=== PATIENT | female | born 2000 | race Caucasian/White ===

== ENCOUNTER 2019-08-12 07:39 | Inpatient (IN) | payer OTHER ==
[2019-08-12] MEDS ORDERED: Ringers Lactate 1,000 ML IV ONE (16:23)
[2019-08-12] MEDS ORDERED: miSOPROStol 100 MCG TAB VAG PRN (16:39)
[2019-08-12] MEDS ORDERED: BUTORPHANOL 1 MG/ML INJ IV PRN (16:39)
[2019-08-12] MEDS ORDERED: METHYLERGONOVINE 0.2MG/ML AMP IM PRN (16:39)
[2019-08-12] MEDS ORDERED: PROMETHAZINE 25 MG/ML VIAL IM PRN (16:39)
[2019-08-12] MEDS ORDERED: DIPHENHYDRAMINE 25 MG TAB/CAP PO PRN (16:39)
[2019-08-12] MEDS ORDERED: CARBOPROST TROME 250 MCG/ML IM PRN (16:39)
[2019-08-12] MEDS ORDERED: MIDAZOLAM HCL 2 MG/2 ML INJ IV PRN (16:39)
[2019-08-12] MEDS ORDERED: Ringers Lactate 1,000 ML IV PRN (16:39)
[2019-08-12] MEDS ORDERED: MEPERIDINE HCL 25 MG/0.5 ML IV PRN (16:39)
[2019-08-12] MEDS ORDERED: ZOLPIDEM TARTRATE 5 MG TABLET PO PRN (16:39)
[2019-08-12] MEDS ORDERED: MAGNES/ALUMIN/SIMET 30ML UCUP PO PRN (16:39)
[2019-08-12] MEDS ORDERED: Ringers Lactate 1,000 ML IV SCH (17:00)
[2019-08-12] MEDS ORDERED: OXYTOCIN/LR 20 UNIT/1,000 ML BAG IV SCH (17:00)
[2019-08-12 17:12] LABS: Absolute Lymphocytes (CBC) 1.7 K/uL (0.7-4.9); Basophils % 0.4 % (0-1.3); Hematocrit 29.7 % (36.0-45.0); Lymphocytes % 26.7 % (15.3-44.8); MPV 9.9 fL (7.6-11.3); RBC Red Blood Cell Count 4.19 M/uL (3.86-4.86)
[2019-08-12 17:15] LABS: Urine Appearance CLEAR; Urine Blood NEGATIVE (NEG); Urine Color DK YELLOW; Urine Glucose NEGATIVE (NEG); Urine Protein 1+ (NEG); Urine Specific Gravity >=1.030 (1.005-1.030)
[2019-08-12 17:24] LABS: Urine Bilirubin NEGATIVE (NEG); Urine Microscopic Reflex ORDER UMIC
[2019-08-12 17:35] LABS: Urine Appearance CLEAR; Urine Bilirubin NEGATIVE (NEG); Urine Blood NEGATIVE (NEG); Urine Color YELLOW; Urine Glucose NEGATIVE (NEG); Urine Protein 1+ (NEG); Urine Specific Gravity 1.025 (1.005-1.030); Urine pH 6.5 (5.0-7.0)
[2019-08-12 17:49] LABS: Urine Bacteria >50 /HPF (<20); Urine Mucus SLIGHT /HPF (NONE SEEN)
[2019-08-12 17:50] LABS: Urine Culture Reflex Order NOT NEEDED
[2019-08-12 17:53] LABS: Urine Bacteria <20 /HPF (<20); Urine Culture Reflex Order REFLEXED; Urine Mucus SLIGHT /HPF (NONE SEEN); Urine RBC <5 /HPF (NONE SEEN)
[2019-08-12] MEDS ORDERED: MAGNESIUM SULF/STERILE WATER 1,000 ML IV SCH (18:00)
[2019-08-12 18:25] VITALS: BMI 36.7
[2019-08-12] MEDS ORDERED: Oxycodone HCl/Acetaminophen 1 TAB TAB PO PRN (20:20)
[2019-08-12] MEDS ORDERED: Oxycodone HCl/Acetaminophen 1 TAB TAB ONE (20:39)
[2019-08-12 21:55] LABS: RPR (Rapid Plasma Reagin) NON-REACT (NON-REACT)
--- NOTE | 2019-08-12 22:41 | PREOPHP ---
Date of Admission: 08/12/2019 18-year-old primigravida, 40 weeks gestation. For Cytotec induction, full discussion in the office a nd again this afternoon concerning Cytotec. Baby did not look reactive. We did acoustic stimulation and the pulse went from about 130 to 170. Now, expected the 140 to 150 range looks better. Her blo od pressures were elevated to 145-150 systolic, 85 diastolic. She has +1 edema and her reflexes are brisk. We will get a catheterized specimen to show protein. We will start her on magnesium sulfate 4 g with loading dose of 2 g an hour maintenance dose. Full discussion with patient and family. Cer vix is 1.5 cm, posterior, 50% soft. Baby is applied at -1 to almost -2 station. Cytotec 50 mcg inse rted. We will insert another one in 6 hours and then 6 hours a third one if needed. Full labor talk and induction talk given. KRUPA/BRIAN Voice ID: [id number]
[2019-08-13] MEDS ORDERED: ROPIVACAINE HCL 100 ML IV PRN (02:34)
[2019-08-13] MEDS ORDERED: FENTANYL CITR 100 MCG/2 ML IV ONE (02:36)
[2019-08-13] MEDS ORDERED: ROPIVACAINE HCL 20 ML ONE (02:58)
[2019-08-13] MEDS ORDERED: LIDOCAINE 1% MPF 30 ML VIAL ONE (07:09)
[2019-08-13] MEDS ORDERED: METHYLERGONOVINE 0.2MG/ML AMP IM ONE (07:09)
[2019-08-13] MEDS ORDERED: CARBOPROST TROME 250 MCG/ML IM ONE ×2 (07:09→07:11)
[2019-08-13] MEDS ORDERED: CARBOPROST TROME 250 MCG/ML IM PRN (08:35)
[2019-08-13] MEDS ORDERED: IBUPROFEN 200 MG TAB PO PRN (08:35)
[2019-08-13] MEDS ORDERED: Oxycodone HCl/Acetaminophen 1 TAB TAB PO PRN ×2 (08:35)
[2019-08-13] MEDS ORDERED: BISACODYL 10 MG RECTAL SUPP RECT PRN (08:35)
[2019-08-13] MEDS ORDERED: DIPHENHYDRAMINE 25 MG TAB/CAP PO PRN (08:35)
[2019-08-13] MEDS ORDERED: ACETAMINOPHEN 500 MG TAB PO PRN (08:35)
[2019-08-13] MEDS ORDERED: DOCUSATE NA/SENNA CONC 1 TAB PO PRN (08:35)
[2019-08-13] MEDS ORDERED: OXYTOCIN/LR 20 UNIT/1,000 ML BAG IV SCH (09:00)
[2019-08-13] MEDS: PHENOBARBITAL 32.4 MG TABLET PO SCH ×2 (13:10→18:50)
--- NOTE | 2019-08-13 14:15 | PN ---
Subjective: This 18-year-old primigravida, now at 40 weeks and 1 day, had Cytotec inserted 2 to 3 ti mes, experienced partial rupture of membranes, clear fluid. Complete rupture this morning. The slim ent had epidural anesthesia established. Her blood pressures moderated during the night. Magnesium s ulfate level was less than 6 but greater than 5 into therapeutic range. We have shut off the magnesi um sulfate. Taken out Bartlett and patient now with pushing. Baby looks good on the monitor. Hopefull y, delivery will be affected within the next 30 minutes or so. KRUPA/BRIAN Voice ID: [id number] Report ID: [id number]
--- NOTE | 2019-08-13 19:33 | OP ---
Surgeon: Gee Carlisle MD Description Of Procedure: A 18-year-old primigravida, 40 weeks gestation, had Cytotec inserted x3, w ent into an active labor pattern. Experienced partial rupture of membranes and clear fluid. Complet e rupture of membranes at approximately 9 to 9.5 cm. She received epidural anesthesia. Patient was started on magnesium sulfate. Mild preeclampsia. Last magnesium sulfate level greater than 5 less t le 6. The second stage of approximately 45 minutes, approximately an hour. Second degree episiotom y performed for delivery of a 9-pound 4-ounce male , Apgars 9 and 9. Schultze delivery of the placenta, which was inspected and noted to be intact and normal. Mild hypotonus. Hemabate given IM. IV drip Pitocin and massage. Estimated blood loss 400 to 450 cc. Rh negative, immune to Rubella. Negative beta strep screen. Tolerated all procedures well. Magnesium sulfate will be reinstituted and continue until patient begins diuresis phase. Final Diagnoses: Intrauterine gestation, 40 weeks, Cytotec for cervical ripening. Labor induction. Vaginal delivery. Epidural anesthesia. Mild preeclampsia. Mild hypotonus. NBC/MODL Voice ID: [id number] Report ID: [id number]
[2019-08-14] MEDS: PHENOBARBITAL 32.4 MG TABLET PO SCH ×2 (01:05→07:00)
[2019-08-14] MEDS ORDERED: Rho(D) IG (HUMAN) 300 MCG SYR IM ONE (08:35)
[2019-08-14 10:24] VITALS: BP 133/50; TEMP 97.5
--- NOTE | 2019-08-17 12:00 | DS ---
Date of Discharge: 08/14/2019 Hospital Course: , patient has done well. Magnesium sulfate has been discontinued. Her b lood pressures are moderating. Lochia is normal. 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 She is Rh negative and qualifies for RhoGAM, which she will get if needed before she leaves. D oes not require any analgesics on dismissal. We will keep her on phenobarbital for the next 2 to 3 d ays. She is to see me in the office on Saturday for blood pressure evaluation. She knows to report an y problems or come to the emergency room over the weekend if she has any problems, which have been ou tlined to the patient. Final Diagnoses: Term intrauterine . Cytotec for cervical ripening. Vaginal delivery. Ep idural anesthesia. Rh negative. RhoGAM pending. Preeclampsia, mild, now improving. KRUPA/MODL Voice ID: [id number] Report ID: [id number]
[2019-08-19 03:24] LABS: HBsAG Nonreactive (Nonreactive)
== END 2019-08-14 11:05 | disposition home or self-care (01) | DRG 807 ==
LOC: 2ND-WC 16:25
PROVIDERS: ADMIT Specialist; ATTEND Specialist
PROC: 3E0P7VZ Introduction of Hormone into Female Reproductive, Via Natural or Artificial Opening (ICD-10-PCS; principal; 2019-08-13)
PROC: 10E0XZZ Delivery of Products of Conception, External Approach (ICD-10-PCS; 2019-08-13)
PROC: 0W8NXZZ Division of Female Perineum, External Approach (ICD-10-PCS; 2019-08-13)
PROC: 00HU33Z Insertion of Infusion Device into Spinal Canal, Percutaneous Approach (ICD-10-PCS; 2019-08-13)
DX: O14.04 Mild to moderate pre-eclampsia, complicating childbirth (principal); Z37.0 Single live birth; O62.0 Primary inadequate contractions; Z3A.40 40 weeks gestation of pregnancy
CPT/HCPCS: 36415; 81001; 81003; 81015; 83735; 85025; 85461; 86592; 86850; 86900; 86901; 87086; 87088; 87340; J0595; J2210; J2550; J2590; J2790; J2795; J3010; J3475; J7120